=== PATIENT | male | born 1970 | race Caucasian/White ===

== ENCOUNTER 2016-06-04 11:34 | Emergency (ER) | payer BC ==
[2016-06-04 11:49] VITALS: BP 156/93; TEMP 97.9; O2SAT 99
[2016-06-04] MEDS ORDERED: methylPREDNISolone ACETATE 40 MG/ML VIAL IM ONE (11:57)
--- NOTE | 2016-06-04 11:59 | ED.PDOC ---
History of Present Illness - General Chief Complaint: Respiratory Problem Stated Complaint: ear pain/congestion Time Seen by Provider: 06/04/16 11:56 Source: patient, Vital Signs reviewed, EMS notes reviewed Exam Limitations: no limitations - History of Present Illness Initial Comments: This 46 y/o male has had sinus drainage with ear discomfort bilaterally for 1 day. Timing/Duration: 24 hours Severity: moderate Improving Factors: nothing Worsening Factors: nothing Associated Symptoms: denies symptoms Allergies/Adverse Reactions: Allergies NO KNOWN ALLERGY Allergy (Unverified 04/02/12 22:52) Home Medications: Ambulatory Orders cloNIDine HCL [Catapres] 0.2 mg PO DAILY 10/12/15 Amoxicillin 875 mg PO BID #20 tab 06/04/16 Review of Systems - Review of Systems Constitutional: States: no symptoms reported EENTM: States: ear pain, nose congestion, throat pain Respiratory: States: cough Cardiology: States: no symptoms reported Gastrointestinal/Abdominal: States: no symptoms reported Genitourinary: States: no symptoms reported Musculoskeletal: States: neck pain Skin: States: no symptoms reported Neurological: States: no symptoms reported Endocrine: States: no symptoms reported Hematologic/Lymphatic: States: no symptoms reported All other Systems: Reviewed and Negative Past Medical History (General) - Patient Medical History Hx Stroke: No Hx Hypertension: Yes Hx Diabetes: No Hx MRSA: No Surgical History: tonsillectomy - Vaccination History Hx Tetanus, Diphtheria Vaccination: No Hx Influenza Vaccination: No Hx Pneumococcal Vaccination: No - Social History Hx Tobacco Use: Yes Family Medical History - Family History Father Family History: Unknown Living Status: Unknown Physical Exam - Physical Exam General Appearance: Alert, Comfortable, No apparent distress Eye Exam: bilateral normal Ears, Nose, Throat: hearing grossly normal, normal pharynx, abnormal TM (R) - Erythema, abnormal TM (L) - central erythema, nasal congestion Neck: non-tender, full range of motion, normal inspection Respiratory: lungs clear, normal breath sounds, no respiratory distress, no accessory muscle use Cardiovascular/Chest: regular rate, rhythm, no edema, no gallop, no murmur Gastrointestinal/Abdominal: normal bowel sounds, non tender, soft, no organomegaly Extremity: normal range of motion, normal inspection Neurologic: alert, normal mood/affect, oriented x 3 Skin Exam: normal color, warm/dry Departure - Departure Clinical Impression: Upper respiratory infection with cough and congestion Otitis media of both ears Qualifiers: Otitis media type: mucoid Chronicity: acute Qualifier Code: (H65.113) Acute and subacute allergic otitis media (mucoid) (sanguinous) (serous), bilateral Time of Disposition: 12:01 Disposition: Discharge to Home or Self Care Condition: Fair Departure Forms: ED Discharge - Pt. Copy, Patient Portal Self Enrollment Instructions: Middle Ear Infection Diet: resume usual diet Referrals: LORI STONE IV, [facility] [employer]PERATOR [Primary Care Provider] - 1-2 Weeks Prescriptions: Amoxicillin 875 mg PO BID #20 tab Home Medications: Ambulatory Orders cloNIDine HCL [Catapres] 0.2 mg PO DAILY 10/12/15 Amoxicillin 875 mg PO BID #20 tab 06/04/16 Additional Instructions: Follow up if symptoms persist or worsen.
== END 2016-06-04 12:20 | disposition home or self-care (01) ==
LOC: ER 11:34
DX: H65.113 Acute and subacute allergic otitis media (mucoid) (sanguinous) (serous), bilateral (principal); J06.9 Acute upper respiratory infection, unspecified; I10 Essential (primary) hypertension; Z87.891 Personal history of nicotine dependence

== ENCOUNTER 2016-08-28 13:36 | Emergency (ER) | payer BC ==
[2016-08-28 13:56] VITALS: TEMP 98.3
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
[2016-08-28 15:00] VITALS: BP 138/85; O2SAT 92
== END 2016-08-28 15:00 | disposition home or self-care (01) ==
LOC: ER 13:36
DX: S20.461A Insect bite (nonvenomous) of right back wall of thorax, initial encounter (principal); I10 Essential (primary) hypertension; W57.XXXA Bitten or stung by nonvenomous insect and other nonvenomous arthropods, initial encounter; Y92.89 Other specified places as the place of occurrence of the external cause

== ENCOUNTER 2018-10-11 15:16 | Emergency (ER) | payer BC ==
[2018-10-11] MEDS ORDERED: SILVER SULFADIAZINE 1 % 25 GM TUBE TOP ONE ×2 (15:23→15:39)
[2018-10-11] MEDS ORDERED: CHLORHEXIDINE GLUCONATE 4 % 15 ML UD TOP ONE (15:25)
[2018-10-11 15:34] VITALS: O2SAT 97
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
[2018-10-11] MEDS ORDERED: TETANUS,DIPHTHERIA,PERTUSSIS 1 EA SYG IM ONE (15:39)
[2018-10-11 16:16] VITALS: BP 159/106; TEMP 97.4
== END 2018-10-11 16:37 | disposition home or self-care (01) ==
LOC: ER 15:16
DX: T23.221A Burn of second degree of single right finger (nail) except thumb, initial encounter (principal); I10 Essential (primary) hypertension; X01.0XXA Exposure to flames in uncontrolled fire, not in building or structure, initial encounter; Y93.H2 Activity, gardening and landscaping; Y92.9 Unspecified place or not applicable; Z23 Encounter for immunization